=== PATIENT | male | born 1990 | race Caucasian/White ===

== ENCOUNTER 2019-03-07 10:31 | Outpatient (CLI) | payer OTHER ==
--- NOTE | 2019-03-07 13:01 | RAD ---
RIGHT ANKLE 3 VIEW: Date: 03/07/19 HISTORY: Ankle pain and tenderness. FINDINGS: Some minimal spur formation along the tip of the medial malleolus, and a spur of the Achilles tendon insertion is noted. There is no joint effusion or acute bony findings. IMPRESSION: No acute change. POS: C
== END 2019-03-07 10:32 | disposition home or self-care (01) ==
LOC: BICRAD 10:31
PROVIDERS: ATTEND Specialist
DX: M25.571 Pain in right ankle and joints of right foot (principal)